=== PATIENT | female | born 1980 | race Caucasian/White ===

== ENCOUNTER 2019-05-29 21:23 | Emergency (ER) | payer SELFPAY ==
[~2019-05-29] VITALS: Ht 162.6 cm; Wt 79.4 kg
[2019-05-29 21:26] VITALS: BP 123/83
--- NOTE | 2019-05-29 21:33 | NUR ---
PT AMBULATED TO LOBBY WITH VSS
--- NOTE | 2019-05-29 22:37 | NUR ---
PT AMBULATED TO BED 04
--- NOTE | 2019-05-29 23:02 | NUR ---
39 Y/O FEMALE PRESENTS TO ED, C/O MULTIPLE RASH ON LEFT ARM, RIGHT ANKLE AND BODY. PT STATES RASH APPEARED EARLY THIS MORNING. PT STARTED SCRATCHING RASH DUE TO ITCHINESS. PT TOOK BENADRLY BUT WAS INEFFECTIVE. PT STATES RASH WORSENED AND INCREASE IN SIZE SINCE THIS MORNING. PT DENIES HAVING ANY ALLERGIES. PT HAS NO SOB/CHEST PAIN. PT VSS. ERMD AWARE. WILL CONTINUE TO MONITOR.
--- NOTE | 2019-05-29 23:41 | NUR ---
COVERING PRIMARY RN FOR LUNCH RELIEF.
--- NOTE | 2019-05-30 00:10 | NUR ---
REPORT TO REBECA RODRIGUES. NO CHANGE IN PT CONDITION.
[2019-05-30 00:30] VITALS: BP 115/74
--- NOTE | 2019-05-30 00:35 | NUR ---
PT DISCHARGED WITH PAPERWORK. RX PREDISONE. EDUCATED PT REGARDING MEDICATION AND S/E. EDUCATED PT REGARDING D/C DIAGNOSIS. PT VERBALIZED UNDERSTANDING OF TEACHING. TOLD PT TO FOLLOW UP WITH PCP AND WHEN TO RETURN TO ED. PT VSS. ALL QUESTIONS ANSWERED.
== END 2019-05-30 00:30 | disposition home or self-care (01) ==
LOC: MED 21:23
DX: R21 Rash and other nonspecific skin eruption (principal); Z98.890 Other specified postprocedural states
CPT/HCPCS: 81002; 99283